=== PATIENT | female | born 1950 | race American Indian/Alaskan Native ===

== ENCOUNTER 2018-03-28 11:26 | Outpatient (CLI) | payer MEDICARE ==
--- NOTE | 2018-03-28 13:19 | Mammography Report ---
BONE DEXA:03/28/18 11:26:00 CLINICAL: Postmenopausal. No comparison. TECHNIQUE: Two site bone DEXA performed on an Hologic scanner. FINDINGS: The average BMD of the lumbar spine L1-L4 is 1.167g/cm squared with a T-score of +1.1 and a Z-score of +2.5. The average BMD of the left hip is 1.069g/cm squared with a T-score of +1.0 and a Z-score of +1.4. IMPRESSION: WHO classification: Normal with average fracture risk based on both lumbar spine and left hip measurements. RECOMMENDATION: Clinical correlation and routine screening. DEFINITIONS: BMD = Bone Mineral Density T-score = BMD related to mean peak bone mass of young adult (mean expressed in Standard Deviation) Z-score = Age matched BMD expressed in SD World Health Organization (WHO) Diagnostic Criteria Normal T-score > -1 SD Osteopenia T-score between -1 and -2.4 SD Osteoporosis T-score -2.5 SD or below NOTE: BMD is not the only risk factor for fracture. One should also consider factors such as the patient's age, risk of falling, previous osteoporotic fracture, family history of osteoporotic fractures, current smoker, and low body weight. Z-scores are not calculated if >80 years of age.
== END 2018-03-28 11:27 | disposition home or self-care (01) ==
LOC: MAMMO 11:26
PROVIDERS: ATTEND Internal Medicine
DX: Z13.820 Encounter for screening for osteoporosis (principal); I10 Essential (primary) hypertension; K21.9 Gastro-esophageal reflux disease without esophagitis; Z78.0 Asymptomatic menopausal state; Z90.710 Acquired absence of both cervix and uterus; Z87.891 Personal history of nicotine dependence
CPT/HCPCS: 77080

== ENCOUNTER 2018-05-08 14:10 | Outpatient (CLI) | payer MEDICARE ==
--- NOTE | 2018-05-08 21:43 | XRay Report ---
PROCEDURE: LUMBAR SPINE, 5 VIEWS WITH OBLIQUES TECHNIQUE: Lumbar spine radiographs, including AP, lateral, oblique, and lumbosacral spot views. CPT 68034 HISTORY: Back pain COMPARISONS: None . FINDINGS: Alignment: Normal . Vertebral body heights/Disk spaces: Normal . Fracture(s): None . Facets: Normal . Bone mineralization: Normal . IMPRESSION: Normal Examination . This document is electronically signed by Edgar Kay MD., May 08 2018 09:41:03 PM ET
== END 2018-05-08 14:11 | disposition home or self-care (01) ==
LOC: XRAY 14:10
PROVIDERS: ATTEND Internal Medicine
DX: M54.32 Sciatica, left side (principal); I10 Essential (primary) hypertension; K21.9 Gastro-esophageal reflux disease without esophagitis; Z90.710 Acquired absence of both cervix and uterus; Z87.891 Personal history of nicotine dependence
CPT/HCPCS: 72110